=== PATIENT | female | born 1955 | race Caucasian/White ===

== ENCOUNTER → 2018-07-20 | Outpatient (CLI) | payer MEDICARE ==
[~2018-07-20] MED LIST: GLEEVEC400 MG PO
== END ==
LOC: M.RAD 16:46
DX: J90 Pleural effusion, not elsewhere classified (principal); R91.1 Solitary pulmonary nodule

== ENCOUNTER → 2018-07-31 | Outpatient (CLI) | payer MEDICARE ==
[2018-07-31 14:07] LABS: CREATININE 1.2 mg/dL (0.6-1.3)
== END ==
LOC: M.LAB 13:46 → M.CT 15:00
PROVIDERS: Internal Medicine Pulmonary Disease
DX: J90 Pleural effusion, not elsewhere classified (principal); J98.11 Atelectasis; E04.2 Nontoxic multinodular goiter